=== PATIENT | male | born 1950 | race Caucasian/White ===

== ENCOUNTER 2020-05-11 13:58 | Emergency (ER) | payer MEDICARE ==
[~2020-05-11] VITALS: Ht 185.4 cm; Wt 125.0 kg
[2020-05-11 16:54] VITALS: BP 162/86
== END 2020-05-11 16:56 | disposition home or self-care (01) ==
LOC: ER 13:59
DX: M25.561 Pain in right knee (principal)
CPT/HCPCS: 29505; 73564; 99283